=== PATIENT | male | born 1975 | race Caucasian/White ===

== ENCOUNTER 2023-06-23 11:05 | Outpatient (CLI) | payer OTHER, SELFPAY | END 2023-06-23 11:06 | disposition home or self-care (01) | PROVIDERS: PCP Nurse Practitioner Family; Visit Provider Nurse Practitioner Family | DX: Z00.00 Encounter for general adult medical examination without abnormal findings (principal); I10 Essential (primary) hypertension; Z13.6 Encounter for screening for cardiovascular disorders; Z13.0 Encounter for screening for diseases of the blood and blood-forming organs and certain disorders involving the immune mechanism; Z13.1 Encounter for screening for diabetes mellitus | CPT/HCPCS: 80053; 80061; 85025 ==

== ENCOUNTER 2023-09-22 13:47 | Outpatient (CLI) | payer OTHER, SELFPAY | END 2023-09-22 13:48 | disposition home or self-care (01) | LOC: RAD 13:47 | PROVIDERS: PCP Nurse Practitioner Family; Visit Provider Nurse Practitioner Family | DX: I35.1 Nonrheumatic aortic (valve) insufficiency (principal) | CPT/HCPCS: 93306 ==

== ENCOUNTER 2024-06-13 14:11 | Emergency (ER) | payer OTHER, SELFPAY ==
--- OUTSIDE RECORDS SUMMARY | 2024-06-13 14:15 | XMS_ITS | Clinical Summary ---
Author Organization [email or web address] Address [place], [place] [address] Care Team Providers Care Sterile Proc Tech Name Role Phone None Primary Care Provider Unavailabl e Allergies Active Allergy Reactions Criticality Noted Date Comments Acetaminophen Nausea Only 11/16/2021 Medications traMADol (ULTRAM) 50 mg tabletIndication s:Elbow sprain, right, initial encounter Take 1 tablet by mouth every 6 hours if needed for Pain. 20 tablet 0 10/16/2014 Active aspirin 325 mg tablet Take 325 mg by mouth once daily with a meal. 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 Social Connections Answer Date Recorded Frequency of Communication with Friends and Fami ly Not on file 10/05/2023 Sex and Gender Information Value Date Recorded Sex Assigned at Not on file Legal Sex Male 10:38 AM CDT Gender Identity Not on file Sexual Orientation Not on file Obstetrics History Last Filed Vital Signs Vital Sign Reading Time Taken Comments Blood Pressure 135/80 11/16/2021 7:12 AM CDT Pulse 67 11/16/2021 7:12 AM CDT Temperature 36.4 C (97.6 F) 11/16/2021 6:12 AM CDT Respiratory Rate 18 11/16/2021 6:12 AM CDT Oxygen Saturation 98% 11/16/2021 7:12 AM CDT Inhaled Oxygen Concentration - - Weight 77.1 kg (170 lb) 11/16/2021 6:12 AM CDT Height 172.7 cm (5' 8) 11/16/2021 6:12 AM CDT Body Mass Index 25.85 11/16/2021 6:12 AM CDT Plan of Treatment Health Maintenance Due Date Last Done Comments Tdap 1988 Depression screening for age 12+ 1989 HIV for age 15-65 1992 BMI (ht and wt on same day) for age 18+ 11/22/1995 Hepatitis C screening for age 18-79 11/22/1995 Pneumococcal series for age 6-49 (1 of 2 - PCV) 1996 Tetanus booster 1997 Colonoscopy through age 75 2022 Lipids for age 45-75 2022 COVID-19 vaccine series ( season) Influenza for age 9-49 01/07/2024 Insurance [id number] [id number] [facility] [id number] [id number] [employer] [place] Care Teams Sterile Proc Tech Relationship Specialty Start Date End Date None . PCP - General 03/08/19
[2024-06-13 14:45] VITALS: BP 141/80; PULSE 88; RESP 16; TEMP 37.1; O2SAT 98; BMI 23.2
--- NOTE | 2024-06-13 15:55 | ED.LOWEXIN ---
HPI - Extremity Injury (Lower) General Date Seen: 06/13/24 Chief Complaint: Extremity Pain/Injury, Lower Stated Complaint: L side calf/flank pain Time Seen by Provider: 06/13/24 14:38 Source: patient Mode of arrival: ambulatory Limitations: no limitations History of Present Illness HPI Narrative: Very nice 48-year-old gentleman presents here for evaluation of left leg pain, he describes pain in his lower Achilles area. 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 He does smoke cigarettes. Has a history of hypertension he called this clinic today in [place] and they directed him come to the ER because of worry of a DVT. Related Data Home Medications ?Medication ?Instructions ?Recorded ?Confirmed No Known Home Medications 06/02/23 06/13/24 Allergies Allergy/AdvReac Type Severity Reaction Status Date / Time acetaminophen Allergy Mild Gastrointestinal Verified 06/13/24 14:44 Upset Review of Systems Status of ROS: Reports: 10 or more systems reviewed and unremarkable except as noted in History and below PFSH PFSH Medical History History of gastric ulcer ?Z87.11 - Personal history of peptic ulcer disease (ICD-10) Surgical History Pyloric stenosis ?K31.1 - Adult hypertrophic pyloric stenosis (ICD-10) History of right inguinal hernia repair (02/02/15) ?Z98.890 - Other specified postprocedural states (ICD-10) ?Z87.19 - Personal history of other diseases of the digestive system (ICD-10) Family History Father Myocardial infarction, Onset Age: 55 Mother Myocardial infarction, Onset Age: 55 Lung cancer Sister Skin cancer Aunt Diabetes Uncle Diabetes Social History Narrative: Single. Works at [employer] in [place]. 1 child. The patient walks up to 15 miles a night at work. Current everyday smoker, 1/2 pack per day. No alcohol. No illicit drug use. What is your current living situation?: I presently have a place to live Problems where you live: no known problems In the past 12 months, utilities in danger of being shut off: no In past 12 months, lack of transportation kept you from medical appts, meetings, work, or getting things needed for daily living: no In the past 12 mos, have been you worried that your food would run out before you had money to buy more?: never true In the past 12 mos, the food you bought just didn't last and you didn't have money to buy more?: never true Smoking Status: Former smoker Do you use any of these nicotine containing products: None Second hand tobacco smoke exposure: No How often do you have a drink containing alcohol: never How often do you have six or more drinks on one occasion: Never AUDIT-C Alcohol total score: 0 Non-prescribed substance use: denies use How often does anyone, including family, friends and others, physically hurt you: never How often does anyone, including family, friends and others, insult or talk down to you: never How often does anyone, including family, friends and others, threaten you with harm: never How often does anyone, including family, friends and others, scream or curse at you: never service: No Exam Narrative: Exam Narrative: On examination he is in no apparent distress in room 2 delightful gentleman, his legs look symmetrical bilaterally, with no edema swelling he describes his pain in the mid to distal part of his left lower extremity, 2 his ankle. He describes it worse when he stands and walks around, there is no evidence of any significant swelling, he has a negative Homans sign, he has no evidence of discoloration, bruising or swelling. His DP and posterior tibial pulses are normal as is popliteal, Const: Vital Signs, click to edit/add: Vital Signs - 24 hr 06/13/24 14:45 Temperature 98.8 F Pulse Rate [Pulse Oximeter] 88 Respiratory Rate 16 Blood Pressure [Ri ght Upper Arm] 141/80 H Pulse Oximetry 98 Oxygen Delivery Me thod Room Air Documenting provider has reviewed patient's vital signs: yes Course Vital Signs Vital signs: Initial Vital Signs Temperature 98.8 F 06/13/24 14:45 Temperature Source Temporal Artery Scan 06/13/24 14:45 Pulse Rate 88 06/13/24 14:45 Respiratory Rate 16 06/13/24 14:45 Blood Pressure 141/80 H 06/13/24 14:45 Blood Pressure Mean 100 06/13/24 14:45 Blood Pressure Position Sitting 06/13/24 14:45 Pulse Oximetry 98 06/13/24 14:45 Oxygen Delivery Method Room Air 06/13/24 14:45 Vital Signs Temperature 98.8 F 06/13/24 14:45 Pulse Rate 88 06/13/24 14:45 Respiratory Rate 16 06/13/24 14:45 Blood Pressure 141/80 H 06/13/24 14:45 Pulse Oximetry 98 06/13/24 14:45 Oxygen Delivery Method Room Air 06/13/24 14:45 Temperature 98.8 F 06/13/24 14:45 Pulse Rate 88 06/13/24 14:45 Respiratory Rate 16 06/13/24 14:45 Blood Pressure 141/80 H 06/13/24 14:45 Pulse Oximetry 98 06/13/24 14:45 Oxygen Delivery Method Room Air 06/13/24 14:45 MDM - Extremity Injury (Lower) MDM Narrative Medical decision making narrative: I think this is more likely a more of a tendinitis type picture he has absolutely no swelling, we did do an ultrasound, the clinical picture from the tech is it is negative we will wait for the final report but I think we can probably send him home with ibuprofen ice and follow up with his primary care physician. Consideration of Ortho if ongoing signs and symptoms. Medical Records Attestation: I reviewed the patient's medical records. Imaging Data Leg ultrasound: Radiologist's impression: [place] [address] Diagnostic Imaging Report Patient: Wade Eason MR#: [id number] : 1975 Acct:[id number] Loc: ED Service Date: 06/13/[address]: Ordering Physician: Miguel Wesley M.D. Date of Service: 06/13/24 Procedure(s): US venous LE LT Accession Number(s): [id number] cc: HERMES RUEDA, Hanny Gaona; Miguel Wesley M.D.~ For Patients: As a result of the Cures Act, medical imaging exams and procedure reports are released immediately into your electronic medical record. You may view this report before your referring provider. If you have questions, please contact your health care provider. Indication: pain/cramping left lower leg Technique: Real-time longitudinal and transverse sonographic grayscale imaging with and without compression, as well as color, spectral, and duplex Doppler imaging before and after augmentation, was obtained of the deep system of the left lower extremity, including the common femoral, femoral, popliteal, posterior tibial, and peroneal veins. Comparison: Findings: Common femoral vein: No evidence of thrombus. Femoral vein: No evidence of thrombus. Popliteal vein: No evidence of thrombus. Calf veins: Patent. Impression: No ultrasound evidence of deep venous thrombosis. Dictated by German Morales MD @ 06/13/2024 3:56:11 PM Discharge Plan Discharge Clinical Impression: Acute pain of left lower extremity Patient Disposition: Home, Self-Care Condition: Stable Additional Instructions: Discussed with patient that he will use Tylenol ice rest, follow-up with primary care, but I do not see any evidence of clot explained him that I am not the best worst for these musculoskeletal problems, and I would recommend that he follow-up with sports medicine orthopedics of ongoing. Activity Level: Light activity Discharge Diet: Regular Prescriptions: No Action No Known Home Medications Follow Up/Referrals: Robbie Slade MD [Staff Physician] - Hanny Gaona APRN, CNP [Primary Care Provider] - Stand Alone Forms: Identified Info Instructions
--- OUTSIDE RECORDS SUMMARY | 2024-06-13 16:16 | XMS_ITS | Clinical Summary ---
Author Organization [email or web address] Address [place], [place] [address] Care Team Providers Care Metal Tester Name Role Phone None Primary Care Provider [...] for age 9-49 01/07/2024 Insurance [id number] [id number] [facility] [phone] [id number] [employer] [place] Care Teams Metal Tester Relationship Specialty Start Date End Date None . PCP - General 03/08/19
== END 2024-06-13 16:19 | disposition home or self-care (01) ==
LOC: ED 16:15
PROVIDERS: Emergency Provider Family Medicine; PCP Nurse Practitioner Family
DX: M79.662 Pain in left lower leg (principal)
CPT/HCPCS: 93971; 99283

== ENCOUNTER 2024-12-20 11:18 | Outpatient (CLI) | payer OTHER, SELFPAY | END 2024-12-20 11:19 | disposition home or self-care (01) | PROVIDERS: PCP Nurse Practitioner Family; Visit Provider Nurse Practitioner Family | DX: R00.2 Palpitations (principal); I10 Essential (primary) hypertension | CPT/HCPCS: 80048; 83735; 84443 ==